=== PATIENT | male | born 1990 | race Asian ===

== ENCOUNTER 2018-02-08 01:20 | Emergency (ER) | payer MEDICAID ==
[~2018-02-08] VITALS: Ht 160 cm; Wt 59.1 kg
[2018-02-08] MEDS ORDERED: ONDA4 PO (01:37)
[2018-02-08] MEDS ORDERED: RANI150T7 PO (01:37)
[2018-02-08 03:20] VITALS: BP 134/85
== END 2018-02-08 03:22 | disposition home or self-care (01) ==
LOC: EMS 01:22
DX: F41.9 Anxiety disorder, unspecified (principal); R07.9 Chest pain, unspecified; R06.02 Shortness of breath; R00.2 Palpitations; K21.9 Gastro-esophageal reflux disease without esophagitis; F12.90 Cannabis use, unspecified, uncomplicated; F17.200 Nicotine dependence, unspecified, uncomplicated
CPT/HCPCS: 93005; 99284